=== PATIENT | male | born 1970 | race Caucasian/White ===

== ENCOUNTER 2017-10-02 17:28 | Emergency (ER) | payer SELFPAY ==
[2017-10-02] MEDS ORDERED: Sodium Chloride 0.9% 10 ML Syringe FLUSH PRN (18:32)
[2017-10-02] MEDS ORDERED: HYDROmorphone 0.5 MG/0.5 ML SYRINGE IVPUSH ONE (19:41)
--- NOTE | 2017-10-02 21:25 | EDM.PDOC ---
ED HPI GENERAL MEDICAL PROBLEM - General Chief Complaint: Upper Extremity Injury/Pain Stated Complaint: CHECK SURGICAL INCISION ON ARM Time Seen by Provider: 10/02/17 18:10 Source of Information: Reports: Patient, Old Records History Limitations: Reports: No Limitations - History of Present Illness INITIAL COMMENTS - FREE TEXT/NARRATIVE: 47-year-old male presents for evaluation and treatment following surgery to his left arm. Patient reports about one month ago he was seen in [place]. He states that he was then transferred to [facility] in [place] where he underwent 5 surgeries to his left forearm. He ultimately then decided to go home to [place] and left [facility] to go to a hospital in [place], [place]. He was hospitalized for about 2 weeks there. States he had additional surgeries, approximately 5, in [place]. Patient reports that he was quite ill and received IV antibiotics and what one point had a PICC line in place. Patient reports the initial injury was due to an injury from attempting to stop An elevator with his forearm. States that he ended up getting a laceration to his left dorsal forearm near his elbow. 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 Subsequently got infected. Sounds as if the surgeries he had were debridements and washouts. Patient reports he was discharged from the hospital several days ago. He was discharged on antibiotics and finished those about 2 or 3 days ago. He states that he went back to get the sutures removed and have them removed a day early per his request. States he had the stitches removed the end of August. Patient reports last night he started experiencing a pain and throbbing to his left forearm. States that it hurts to make a fist. A small area on the ventral aspect of his forearm is open and is draining a serious fluid. Reports numbness and tingling associated with the left arm. No fevers, chills, nausea or vomiting. Patient denies any history of being a diabetic or any MRSA infection. Reason patient's record shows that he was seen in [place] on August 30, 2017. At that time he declined admission and decided to go to [place] per the provider reports. Patient reports that he did break his wrist approximately 40 years ago. He does have hardware in his wrist from that break. Location: Reports: Upper Extremity, Left Left Arm Pain Score (Numeric/FACES): 7 - Related Data Allergies Allergy/AdvReac Type Severity Reaction Status Date / Time Penicillins Allergy Severe Swelling Verified 10/02/17 17:47 Home Meds: Home Meds Acetaminophen/oxyCODONE [Percocet 325-5 MG] 1 tab PO Q6HR PRN #20 tab 10/02/17 [ Rx] Doxycycline [Vibramycin] 100 mg PO BID #19 cap 10/02/17 [Rx] Past Medical History - Past Health History Medical/Surgical History: Denies Medical/Surgical History HEENT History: Reports: None Cardiovascular History: Reports: None Respiratory History: Reports: None Gastrointestinal History: Reports: None Genitourinary History: Reports: None Musculoskeletal History: Reports: Back Pain, Chronic, Other (See Below) Neurological History: Reports: None Other Neuro History: Leg nerve problem Psychiatric History: Reports: Anxiety Endocrine/Metabolic History: Reports: Obesity/BMI 30+ Hematologic History: Reports: None Immunologic History: Reports: None Oncologic (Cancer) History: Reports: None Dermatologic History: Reports: Other (See Below) Other Dermatologic History: MRSA infection L arm - Infectious Disease History Infectious Disease History: Reports: MRSA - Past Surgical History Head Surgeries/Procedures: Reports: None Respiratory Surgical History: Reports: Other (See Below) Other Respiratory Surgeries/Procedures: nose fx x 5 Musculoskeletal Surgical History: Reports: Other (See Below) Other Musculoskeletal Surgeries/Procedures:: L5 fusion, R arm fasciitis with surgical intervention. left lower arm washout Social & Family History - Family History Family Medical History: Noncontributory - Tobacco Use Smoking Status *Q: Current Some Day Smoker Years of Tobacco use: 10 Packs/Tins Daily: 0.2 Used Tobacco, but Quit: No Second Hand Smoke Exposure: No - Caffeine Use Caffeine Use: Reports: None - Recreational Drug Use Recreational Drug Use: No - Living Situation & Occupation Living situation: Reports: Occupation: Employed Review of Systems - Review of Systems Review Of Systems: See Below Constitutional: Denies: Chills, Fever GI/Abdominal: Denies: Nausea, Vomiting Musculoskeletal: Reports: Arm Pain (left) Skin: Reports: Wound (post surgical wounds to the left forearm ventral wound has a small open area and is draining serous fluid) Neurological: Reports: Numbness (left forearm), Tingling (left forearm) ED EXAM, GENERAL - Physical Exam Exam: See Below Exam Limited By: No Limitations General Appearance: Alert, WD/WN, No Apparent Distress Respiratory/Chest: No Respiratory Distress, Lungs Clear, Normal Breath Sounds Cardiovascular: Normal Peripheral Pulses, Regular Rate, Rhythm, No Murmur Peripheral Pulses: 2+: Radial (L), Radial (R) Extremities: Normal Inspection, Normal Capillary Refill, Limited Range of Motion (pain with ROM to the left wrist and elbow), Other (slight erythema to the left forearm compared to the right, minor swelling to the left forearm compared to the right; no bruising; tenderness to the entire left forearm) Neurological: Alert, Oriented, Normal Cognition Psychiatric: Normal Affect, Normal Mood Skin Exam: Warm, Dry, Normal Color, Other (well healed surgical scar to the left ventral wrist presumably from repair 40 years ago; 2 large healing surgical wounds to the forearm stretching the entire length of the forearm, the dorsal wound is well approximalted no drainage, the ventral wound has an approximately 1.5cm open area draining carlo colored serous fluid). No: Increased Warmth Course - Vital Signs Last Recorded V/S: Last Vital Signs Temp 97.8 F 10/02/17 17:41 Pulse 90 10/02/17 17:41 Resp 18 10/02/17 17:41 BP 135/85 10/02/17 17:41 Pulse Ox 98 10/02/17 17:41 - Orders/Labs/Meds Labs: Laboratory Tests 10/02/17 10/02/17 10/02/17 Range/Units 19:18 19:18 19:18 WBC 6.23 (4.23-9.07) K/mm3 RBC 4.49 L (4.63-6.08) M/mm3 Hgb 13.6 L (13.7-17.5) gm/L Hct 41.8 (40.1-51.0) % MCV 93.1 H (79.0-92.2) fl MCH 30.3 (25.7-32.2) pg MCHC 32.5 (32.2-35.5) g/dl RDW Std Deviation 43.1 (35.1-43.9) fL Plt Count 245 (163-337) K/mm3 MPV 9.3 L (9.4-12.3) fl Neutrophils % (Manual) 54 (40-60) % Band Neutrophils % 2 (0-10) % Lymphocytes % (Manual) 26 (20-40) % Atypical Lymphs % 1 % Monocytes % (Manual) 12 H (2-10) % Eosinophils % (Manual) 5 (0.8-7.0) % Basophils % (Manual) 0 L (0.2-1.2) Platelet Estimate Adequate Plt Morphology Comment Normal RBC Morph Comment Normal Sodium 144 (136-145) mEq/L Potassium 4.0 (3.5-5.1) mEq/L Chloride 109 H (98-107) mEq/L Carbon Dioxide 26 (21-32) mEq/L Anion Gap 13.0 (5-15) BUN 15 (7-18) mg/dL Creatinine 1.0 (0.7-1.3) mg/dL Est Cr Clr Drug Dosing TNP Estimated GFR (MDRD) > 60 (>60) mL/min BUN/Creatinine Ratio 15.0 (14-18) Glucose 111 H (74-106) mg/dL Lactic Acid 0.9 (0.4-2.0) mmol/L Calcium 8.8 (8.5-10.1) mg/dL Total Bilirubin 0.5 (0.2-1.0) mg/dL AST 46 H (15-37) U/L ALT 96 H (16-63) U/L Alkaline Phosphatase 97 (46-116) U/L C-Reactive Protein < 0.2 (<1.0) mg/dL Total Protein 7.6 (6.4-8.2) g/dl Albumin 3.9 (3.4-5.0) g/dl Globulin 3.7 gm/dL Albumin/Globulin Ratio 1.1 (1-2) Meds: Medications Discontinued Medications Generic Name Dose Route Start Last Admin Trade Name Lexis PRN Reason Stop Dose Admin Doxycycline Hyclate 100 mg 10/02/17 21:43 10/02/17 21:51 Vibramycin PO 10/02/17 21:44 100 mg ONETIME ONE Administration Hydromorphone HCl 0.5 mg 10/02/17 19:41 10/02/17 19:47 Dilaudid IVPUSH 10/02/17 19:42 0.5 mg ONETIME ONE Administration Oxycodone/Acetaminophen 2 tab 10/02/17 21:43 10/02/17 21:51 Percocet 325-5 Mg PO 10/02/17 21:44 2 tab ONETIME ONE Administration Sodium Chloride 10 ml 10/02/17 18:32 10/02/17 19:19 Saline Flush FLUSH 10 ml ASDIRECTED PRN Administration Keep Vein Open - Re-Assessments/Exams Free Text/Narrative Re-Assessment/Exam: 10/02/17 21:40 I reviewed the labs with the patient. Pain greatly improved after pain medication. case discussed with Dr. Moreland, he has come and seen the patient. Recommends close follow-up and to put on doxycycline. Will give a dose of doxy here in the ED and a few pain pills for tonight as the pharmacies are almost closed. Patient agrees with treatment plan. Discharge instructions as documented. Departure - Departure Time of Disposition: 21:44 Disposition: Home, Self-Care 01 Condition: Fair Clinical Impression: Post surgical complication, Wound dehiscence, surgical - Discharge Information Prescriptions: Acetaminophen/oxyCODONE [Percocet 325-5 MG] 1 tab PO Q6HR PRN #20 tab PRN Reason: Pain Doxycycline [Vibramycin] 100 mg PO BID #19 cap Instructions: Wound Dehiscence, [id number] Referrals: PCP,None [Primary Care Provider] - Forms: ED Department Discharge Additional Instructions: You were given medication in the ER that can affect your ability drive and operate machinery. Do not drive or operate machinery within 12 hours of taking perception narcotic pain medication. Percocet 1-2 tabs every 4-6 hours as needed for severe pain. Percocet as habit- forming, take as few of as needed to control your pain. Do not drive or operate machinery within 12 hours of taking Percocet. Doxycycline 1 tablet twice a day for 10 days. your first dose was given in the ER. Start your perception tomorrow. Wash the wound gentle soap and water. Keep it covered. Monitor for signs of worsening infection such as worsening swelling, purulent discharge and worsening erythema. Follow-up with family medicine within 2 weeks for a recheck. Recommend Dr. Breen or Tanya Mckenzie at the [facility], call [phone] to schedule with one of them. Please return to the ER should your symptoms change or worsen.
[2017-10-02] MEDS ORDERED: Doxycycline 100 MG Cap PO ONE (21:43)
[2017-10-02] MEDS ORDERED: Acetaminophen/oxyCODONE 325-5 MG Tab PO ONE (21:43)
--- NOTE | 2017-10-03 07:03 | CR ---
Left forearm: Two views of the left forearm were obtained. Comparison: No previous study. Plate and screws are identified within the distal radius. Mild soft tissue swelling is seen. Possible small metallic foreign body within the posterior mid forearm. No acute bony abnormality is identified. Impression: 1. Soft tissue swelling. Plate and screws within the distal left radius. 2. Possible small metallic foreign body as noted above. 3. Nothing acute is otherwise appreciated. Diagnostic code #3
== END 2017-10-02 22:00 | disposition home or self-care (01) ==
LOC: JD.ED 17:28
DX: T81.31XA Disruption of external operation (surgical) wound, not elsewhere classified, initial encounter (principal); F17.210 Nicotine dependence, cigarettes, uncomplicated; Z98.890 Other specified postprocedural states; Z88.0 Allergy status to penicillin; Z79.899 Other long term (current) drug therapy
CPT/HCPCS: 36415; 73090; 80053; 83605; 85007; 85027; 86140; 87040; 96374; 99283; A9270; J1170; J7050; 99284